=== PATIENT | female | born 1990 | race Two or more races ===

== ENCOUNTER 2017-12-25 00:48 | Emergency (ER) | payer OTHER | END 2017-12-25 01:00 | disposition left against medical advice (07) | LOC: ER 00:48 | DX: R10.30 Lower abdominal pain, unspecified (principal); N93.9 Abnormal uterine and vaginal bleeding, unspecified; Z53.21 Procedure and treatment not carried out due to patient leaving prior to being seen by health care provider ==

== ENCOUNTER 2017-12-25 01:28 | Emergency (ER) | payer OTHER ==
[2017-12-25 01:51] LABS: URINE HCG POC HCG NEGATIVE (Negative)
[2017-12-25 02:28] LABS: BILIRUBIN,URINE NEGATIVE (NEG); CLARITY,URINE CLEAR; COLOR,URINE YELLOW; GLUCOSE,URINE NEGATIVE (NEG); NITRITE,URINE NEGATIVE (NEG); PH,URINE 6.5; PROTEIN,URINE NEGATIVE (NEG-TRACE); UROBILINOGEN,URINE 0.2 mg/dL (0.2 mg/dL)
[2017-12-25 02:32] LABS: BACTERIA,URINE FEW /HPF (0-FEW); RBC,URINE >40 /HPF (0-2); WBC,URINE OCC /HPF (0-4)
[2017-12-25 02:33] LABS: SQUAMOUS EPITHELIAL CELL,UR FEW /LPF
[2017-12-25] MEDS: HYDROcodone/APAP 5/325MG 1 TAB TABLET PO ×2 (02:53)
[2017-12-25 02:54] LABS: ADD MAN DIFF? NO
[2017-12-25 02:57] LABS: BASO # 0.1 x10^3/uL (0.0-0.2); BASO % 1 % (0-3); EOS # 0.1 x10^3/uL (0.0-0.7); EOS % 1 % (0-3); HEMATOCRIT 30.1 % (36.0-47.0); HEMOGLOBIN 9.3 g/dL (12.0-15.5); LYMPH # 2.7 x10^3/uL (1.0-4.8); LYMPH % 40 % (24-48); MEAN CORPUSCULAR HEMOGLOBIN 20 pg (25-35); MEAN CORPUSCULAR HGB CONC 31 g/dL (31-37); MEAN CORPUSCULAR VOLUME 66 fL (79-100); MONO # 0.5 x10^3/uL (0.0-1.1); MONO % 7 % (0-9); NEUT # 3.4 x10^3uL (1.8-7.7); NEUT % 51 % (31-73); PLATELET COUNT 322 x10^3/uL (140-400); RED BLOOD COUNT 4.57 x10^6/uL (3.50-5.40); RED CELL DISTRIBUTION WIDTH 17.6 % (11.5-14.5); WHITE BLOOD COUNT 6.6 x10^3/uL (4.0-11.0)
[2017-12-25 04:55] LABS: PLT ESTIMATE ADEQUATE (ADEQUATE)
[2017-12-25 04:56] LABS: ANISOCYTOSIS SLIGHT; HYPOCHROMIA MARKED; MICROCYTOSIS MARKED; POLYCHROMASIA SLIGHT; TEAR DROP CELLS OCC
== END 2017-12-25 04:42 | disposition home or self-care (01) ==
LOC: ER 01:28
DX: N93.0 Postcoital and contact bleeding (principal); G89.29 Other chronic pain; R10.2 Pelvic and perineal pain
CPT/HCPCS: 36415; 76830; 76856; 81001; 81025; 84702; 85025; 99285-25

== ENCOUNTER 2020-03-07 22:00 | Emergency (ER) | payer OTHER ==
[~2020-03-07] VITALS: Ht 160 cm; Wt 70.4 kg
[~2020-03-07 22:00] MED LIST: METH5TAB6 PO
[2020-03-07] MEDS ORDERED: AZIT500T4 PO (23:07)
--- NOTE | 2020-03-07 23:07 | PHYS DOC ---
Past Medical History Past Medical History: Hypothyroid Additional Past Medical Histor: scoliosis Past Surgical History: Smoking Status: Light Tobacco Smoker Additional Information: "only when I drink" Alcohol Use: Occasionally Additional Information: 1 time per month drinks beer Drug Use: None General Adult EDM: Chief Complaint: SHORTNESS OF BREATH HPI: HPI: 29-year-old female presents with a chief complaint of cough or shortness of breath headache fever chills. Patient states significant other tested positive for covid. Review of Systems: Review of Systems: Constitutional: positive fever Eyes: Denies change in visual acuity. [] HENT: Denies nasal congestion or sore throat. [] Respiratory: Positive cough-positive shortness of breath Cardiovascular: Denies chest pain or edema. [] GI: Denies abdominal pain, nausea, vomiting, bloody stools or diarrhea. [] : Denies dysuria. [] Musculoskeletal: Denies back pain or joint pain. []Positive muscle aches Integument: Denies rash. [] Neurologic: Denies headache, focal weakness or sensory changes. [] Endocrine: Denies polyuria or polydipsia. [] Lymphatic: Denies swollen glands. [] Psychiatric: Denies depression or anxiety. [] Heart Score: Risk Factors: Risk Factors: DM, Current or recent (<one month) smoker, HTN, HLP, family history of CAD, obesity. Risk Scores: Score 0 - 3: 2.5% MACE over next 6 weeks - Discharge Home Score 4 - 6: 20.3% MACE over next 6 weeks - Admit for Clinical Observation Score 7 - 10: 72.7% MACE over next 6 weeks - Early Invasive Strategies Allergies: Allergies: Allergies Coded Allergies Type Severity Reaction Last Updated Verified No Known Drug Allergies 09/19/16 No Physical Exam: PE: Constitutional: Well developed, well nourished, no acute distress, non-toxic appearance. [] HENT: Normocephalic, atraumatic, bilateral external ears normal, oropharynx moist, no oral exudates, nose normal. [] Eyes: PERRLA, EOMI, conjunctiva normal, no discharge. [] Neck: Normal range of motion, no tenderness, supple, no stridor. [] Cardiovascular:Heart rate regular rhythm, no murmur [] Lungs & Thorax: Bilateral breath sounds clear to auscultation [] Abdomen: Bowel sounds normal, soft, no tenderness, no masses, no pulsatile masses. [] Skin: Warm, dry, no erythema, no rash. [] Back: No tenderness, no CVA tenderness. [] Extremities: No tenderness, no cyanosis, no clubbing, ROM intact, no edema. [] Neurologic: Alert and oriented X 3, normal motor function, normal sensory function, no focal deficits noted. [] Psychologic: Affect normal, judgement normal, mood normal. [] Current Patient Data: Vital Signs: Vital Signs Date Time Temp Pulse Resp B/P (MAP) Pulse Ox O2 Delivery O2 Flow Rate FiO2 03/07/20 22:50 99.0 102 16 108/56 (73) 97 Room Air 99.0 EKG: EKG: [] Radiology/Procedures: Radiology/Procedures: [] Course & Med Decision Making: Course & Med Decision Making Pertinent Labs and Imaging studies reviewed. (See chart for details) []Patient was evaluated for chief complaint. Based on history of present illness and physical exam no emergent lab or radiologic imaging indicated. Patient is in no acute distress oxygen saturation 100% on room air. Patient will be discharged home with Zithromax. Patient advised to take Tylenol Motrin as needed for pain. Patient will also be given albuterol inhaler. Patient advised to quarantine for 14 days. Shraon Disclaimer: Sharon Disclaimer: This electronic medical record was generated, in whole or in part, using a voice recognition dictation system. Departure Departure Impression: Primary Impression: Exposure to COVID-19 virus Additional Impression: Viral respiratory illness Disposition: HOME, SELF-CARE Referrals: JOHN PATHAK MD (PCP) Patient Instructions: Viral Syndrome Scripts Albuterol Sulfate (PROAIR HFA INHALER) 8.5 Gm Hfa.aer.ad 2 PUFF IH PRN Q4-6HRS PRN for wheezing for 21 Days, #1 INHALER 0 Refills Prov: JOSUE DAMON DO 03/07/20 Azithromycin (AZITHROMYCIN TABLET) 500 Mg Tablet 1 TAB PO DAILY for 5 Days, #5 TAB 0 Refills Zpak Take as directed Prov: JOSUE DAMON DO 03/07/20 JOSUE DAMON DO Mar 07, 2020 23:07
[2020-03-07] MEDS ORDERED: ALBU2.5V8 IH (23:13)
[2020-03-07 23:35] VITALS: BP 104/56
== END 2020-03-07 23:54 | disposition home or self-care (01) ==
LOC: ER 22:00
DX: B33.8 Other specified viral diseases (principal); R06.02 Shortness of breath; R50.9 Fever, unspecified; R05 Cough; E03.9 Hypothyroidism, unspecified; M41.80 Other forms of scoliosis, site unspecified; F17.200 Nicotine dependence, unspecified, uncomplicated; Z98.890 Other specified postprocedural states; Z20.828 Contact with and (suspected) exposure to other viral communicable diseases
CPT/HCPCS: 99285